=== PATIENT | male | born 1960 | race Caucasian/White ===

== ENCOUNTER 2022-10-10 12:44 | Emergency (ER) | payer MEDICARE, SELFPAY ==
[2022-10-10] MEDS ORDERED: Ipratropium/Albuterol 3 ML NEB ONE (13:07)
[2022-10-10 13:47] LABS: #Basophils 0.1 thou/uL (0.0-0.2); #Eosinphils 0.1 thou/uL (0.0-0.7); #Lymphocytes 1.5 thou/uL (1.20-3.40); #Monocytes 0.6 thou/uL (0.11-0.59); #Neutrophils 4.9 thou/uL (1.40-6.50); %Eosinophils 1.6 % (0.0-10.0); %Lymphocytes 20.9 % (21.0-51.0); %Monocytes 7.9 % (0.0-10.0); %Neutrophils 68.7 % (42.0-75.0); Hemoglobin 12.7 g/dL (14.0-18.0); Mean Corpuscular HGB CONC 33.9 g/dL (32.0-36.0); Mean Corpuscular Hemoglobin 32.2 pg (27.0-31.0); Mean Platelet Volume 10.6 fL (7.4-10.4); Platelet Count 133 10x3/uL (130-400); RBC Distribution Width 12.8 % (11.5-14.5); Red Blood Cell (RBC) Count 3.95 mill/uL (4.70-6.10); White Blood Cell (WBC) Count 7.1 10x3/uL (4.8-10.8)
[2022-10-10 14:00] LABS: ALT (SGPT) 44 U/L (8-55); AST (SGOT) 28 U/L (5-34); Albumin 3.7 g/dL (3.4-4.8); Alkaline Phosphatase 136 U/L (40-110); Anion Gap 15 mmol/L (10-20); BUN (Urea Nitrogen) 29 mg/dL (8.4-25.7); Bilirubin, Total 0.5 mg/dL (0.2-1.2); Calc. Creatinine Clearance 0 mL/min (70-130); Calcium 8.4 mg/dL (7.8-10.44); Carbon Dioxide 17 mmol/L (23-31); Chloride 110 mmol/L (98-107); Estimated GFR 37; Glucose 94 mg/dL (80-115); Magnesium 1.8 mg/dL (1.6-2.6); Potassium 4.1 mmol/L (3.5-5.1); Protein, Total 6.7 g/dL (5.8-8.1); Sodium 138 mmol/L (136-145)
[2022-10-10] MEDS ORDERED: Furosemide 40 MG/4 ML VIAL ONE (14:17)
[2022-10-10 14:18] LABS: CKMB 3.5 ng/mL (0-6.6)
[2022-10-10] MEDS ORDERED: Nitroglycerin 2% Ointment 1 INCH/1 GM Packet ONE (15:33)
[2022-10-10 17:32] LABS: Troponin I 0.096 ng/mL (< 0.028)
== END 2022-10-10 16:52 | disposition short-term general hospital (02) ==
LOC: MADERS 12:44
DX: I11.0 Hypertensive heart disease with heart failure (principal); I50.9 Heart failure, unspecified; R77.8 Other specified abnormalities of plasma proteins; J44.9 Chronic obstructive pulmonary disease, unspecified; F17.210 Nicotine dependence, cigarettes, uncomplicated
CPT/HCPCS: 71045; 80053; 82553; 83735; 83880; 84484; 85025; 85379; 93005; 96374; J1940; J7620

== ENCOUNTER 2023-08-02 15:48 | Emergency (ER) | payer MEDICARE ==
[2023-08-02 17:49] LABS: Band 1 % (5-11); Hematocrit 27.6 % (42.0-52.0); Hemoglobin 9.1 g/dL (14.0-18.0); Hypochromia SLIGHT = 6-15 cells (100X) (0-5/hpf); Lymphocytes 8 % (21-51); MDiff Complete? YES; Mean Corpuscular HGB CONC 32.9 g/dL (32.0-36.0); Mean Corpuscular Hemoglobin 29.3 pg (27.0-31.0); Mean Corpuscular Volume 89.2 fl (78.0-98.0); Mean Platelet Volume 5.6 fL (7.4-10.4); Monocytes 7 % (0-10); Neutrophil 84 % (42-75); Platelet Adequacy Comment Appears Increased; Platelet Count 591 10x3/uL (130-400); Red Blood Cell (RBC) Count 3.09 mill/uL (4.70-6.10); White Blood Cell (WBC) Count 24.5 10x3/uL (4.8-10.8)
[2023-08-02 17:56] LABS: ALT (SGPT) 18 U/L (8-55); AST (SGOT) 19 U/L (5-34); Albumin 3.2 g/dL (3.4-4.8); Alkaline Phosphatase 189 U/L (40-110); Anion Gap 17 mmol/L (10-20); BUN (Urea Nitrogen) 38 mg/dL (8.4-25.7); Bilirubin, Total 0.2 mg/dL (0.2-1.2); Calc. Creatinine Clearance 0 mL/min (70-130); Calcium 8.5 mg/dL (7.8-10.44); Carbon Dioxide 17 mmol/L (23-31); Chloride 106 mmol/L (98-107); Estimated GFR 28; Globulin 4.3 g/dL (2.4-3.5); Glucose 91 mg/dL (80-115); Potassium 5.2 mmol/L (3.5-5.1); Protein, Total 7.5 g/dL (5.8-8.1); Sodium 135 mmol/L (136-145)
[2023-08-02] MEDS ORDERED: Sodium Chloride 0.9% 1,000 ML ONE (18:43)
[2023-08-02] MEDS ORDERED: Ibuprofen 200 MG TAB ONE (18:43)
[2023-08-02 19:55] LABS: Bilirubin Negative (Negative); Blood, Urine Small (Negative); Glucose, Urine (Dipstick) Negative (Negative); Ketone, Urine Negative (Negative); Leukocyte Moderate (Negative); Nitrite Positive (Negative); Protein, Urine (Dipstick) 30 mg/dL (Neg-Trace); Specific Gravity, Urine 1.025 (1.005-1.030); Urobilinogen 0.2 mg/dL (Less than 2); pH, Urine 5.5 (5.0-9.0)
[2023-08-02 20:00] LABS: CAUTI Indications for Culture Fever or rigors; Clarity Turbid (Clear); WBC/HPF Greater than 50 HPF (0-3)
[2023-08-02 20:01] LABS: Bacteria/HPF 4+ HPF (None Seen); Urine Culture Reflex Yes Yes
[2023-08-02 20:07] LABS: Amphetamine Not Detected (NotDetected); Barbiturates Screen Not Detected (NotDetected); Benzodiazepine Screen Not Detected (NotDetected); Cocaine Metabolite Screen Not Detected (NotDetected); Methadone Not Detected (NotDetected); Methamphetamine Detected (NotDetected); Opiate Screen Not Detected (NotDetected); Oxycodone Screen Not Detected (NotDetected); Phencyclidine (PCP) Not Detected (NotDetected); THC/Cannabinoid Screen Not Detected (NotDetected); Tricyclic Screen Not Detected (NotDetected)
[2023-08-02] MEDS ORDERED: Sodium Chloride 0.9% 100 ML ONE (20:27)
[2023-08-02] MEDS ORDERED: cefTRIAXone (ROCEPHIN) 2 GM VIAL ONE (20:27)
[2023-08-02] MEDS ORDERED: Ondansetron PF 4 MG/2 ML Vial ONE (21:05)
[2023-08-02] MEDS ORDERED: Morphine 2 MG/ML VIAL ONE (21:05)
[2023-08-02] MEDS ORDERED: Vancomycin 1 GM VIAL ONE (21:06)
[2023-08-02] MEDS ORDERED: Sodium Chloride 0.9% 500 ML ONE (21:06)
[2023-08-03] MEDS ORDERED: Sodium Chloride 0.9% 1,000 ML ONE (00:14)
== END 2023-08-03 03:49 | disposition short-term general hospital (02) ==
LOC: MADERS 15:48
DX: N39.0 Urinary tract infection, site not specified (principal); N13.2 Hydronephrosis with renal and ureteral calculous obstruction; G89.29 Other chronic pain; M54.9 Dorsalgia, unspecified; F17.210 Nicotine dependence, cigarettes, uncomplicated; J44.9 Chronic obstructive pulmonary disease, unspecified; I11.0 Hypertensive heart disease with heart failure; I50.9 Heart failure, unspecified; R11.2 Nausea with vomiting, unspecified
CPT/HCPCS: 36415; 71045; 74176; 80053; 80306; 81001; 83605; 83690; 85025; 87040; 87077; 87086; 87186; 96361; 96365; 96366; 96367; 96375; J0696; J2272; J2405; J3370; J3490; J7030; J7050